=== PATIENT | male | born 1940 | race Caucasian/White ===

== ENCOUNTER 2017-04-08 11:18 | Outpatient (CLI) | payer OTHER | END 2017-04-08 17:44 | disposition home or self-care (01) | LOC: SRD 11:18 | PROVIDERS: ATTEND Internal Medicine | DX: M17.11 Unilateral primary osteoarthritis, right knee (principal); M85.88 Other specified disorders of bone density and structure, other site | CPT/HCPCS: 73564 ==

== ENCOUNTER 2017-07-18 09:13 | Emergency (ER) | payer OTHER ==
[~2017-07-18] VITALS: Ht 182.9 cm; Wt 110.7 kg
[2017-07-18 09:13] VITALS: BP_SYST 144
[2017-07-18 10:08] LABS: BASOPHILS % (AUTO) 0.4 % (0.0-2.0); EOSINOPHILS # (AUTO) 0.3 K/uL (0.0-0.4); EOSINOPHILS % (AUTO) 2.8 % (0.0-4.0); HEMATOCRIT 39.6 % (36-54); HEMOGLOBIN 12.8 g/dL (14.0-18.0); LYMPHOCYTES # (AUTO) 0.8 K/uL (1.0-5.5); LYMPHOCYTES % (AUTO) 6.9 % (20.5-51.5); MEAN CORPUSCULAR HEMOGLOBIN 30 pg (27-31); MEAN CORPUSCULAR HGB CONC 32 % (32-36); MEAN CORPUSCULAR VOLUME 92 fL (79.0-98.0); MONOCYTES # (AUTO) 0.9 K/uL (0.0-1.0); MONOCYTES % (AUTO) 8.1 % (1.7-9.3); NEUTROPHILS # (AUTO) 9.2 K/uL (1.8-7.7); NEUTROPHILS % (AUTO) 81.8 % (40.0-70.0); PLATELET COUNT (AUTO) 119 K/uL (130-430); RED BLOOD CELL COUNT(AUTO) 4.31 MIL/uL (4.2-6.2); RED CELL DISTRIBUTION WIDTH 13.6 % (9.0-15.0); WHITE BLOOD COUNT (AUTO) 11.2 K/uL (4.8-10.8)
[2017-07-18] MEDS ORDERED: KETOROLAC TROMETHAMINE 30 MG VIAL ONE ×2 (10:12→10:14)
[2017-07-18 10:18] LABS: ANION GAP 8 (5-15); CALCIUM 9.5 mg/dL (8.4-11.0); CHLORIDE 109 mmol/L (98-107); CREATININE 1.68 mg/dL (0.55-1.30); GLUCOSE 137 mg/dL (70-99); POTASSIUM 4.2 mmol/L (3.5-5.1); SODIUM SERUM 138 mmol/L (136-145); UREA NITROGEN, BLOOD 37 mg/dL (8-21)
[2017-07-18 10:22] LABS: INR 1.1 (0.80-1.20); PROTHROMBIN TIME 11.1 SECS (9.5-12.5)
[2017-07-18 10:24] LABS: ALANINE AMINOTRANSFERASE 19 U/L (12-78); ALBUMIN 3.7 g/dL (3.4-4.8); ASPARTATE AMINOTRANSFERASE 18 U/L (10-37)
[2017-07-18] MEDS: KETOROLAC TROMETHAMINE 30 MG VIAL IVP ONE (10:45)
[2017-07-18 13:00] VITALS: BP_SYST 125
== END 2017-07-18 13:00 | disposition home or self-care (01) ==
LOC: SED 09:13
DX: G89.29 Other chronic pain (principal); M54.5 Low back pain; Z87.81 Personal history of (healed) traumatic fracture
CPT/HCPCS: 36415; 72100; 80053; 83880; 84484; 85025; 85610; 85730; 93005; 96374; 99285; J1885; J7030

== ENCOUNTER 2017-07-23 11:44 | Inpatient (IN) | payer OTHER ==
[~2017-07-23] VITALS: Ht 182.9 cm; Wt 118.4 kg
[2017-07-23 11:49] VITALS: BP_SYST 135
[2017-07-23] MEDS ORDERED: ASPIRIN 81 MG TAB.CHEW PO ONE (12:15)
[2017-07-23] MEDS ORDERED: NITROGLYCERIN 1 INCH (GM) OINT. TP ONE (12:15)
[2017-07-23] MEDS ORDERED: LevALBUTEROL HCL 1.25 MG/0.5 ML *CONC.* VIAL.NEB (XOPENEX CONC.) INH ONE (12:30)
[2017-07-23 12:39] LABS: BASOPHILS % (AUTO) 0.5 % (0.0-2.0); EOSINOPHILS # (AUTO) 0.1 K/uL (0.0-0.4); EOSINOPHILS % (AUTO) 1.1 % (0.0-4.0); HEMATOCRIT 36.6 % (36-54); HEMOGLOBIN 12.1 g/dL (14.0-18.0); LYMPHOCYTES # (AUTO) 0.6 K/uL (1.0-5.5); LYMPHOCYTES % (AUTO) 6.1 % (20.5-51.5); MEAN CORPUSCULAR HEMOGLOBIN 30 pg (27-31); MEAN CORPUSCULAR HGB CONC 33 % (32-36); MEAN CORPUSCULAR VOLUME 92 fL (79.0-98.0); MONOCYTES # (AUTO) 0.9 K/uL (0.0-1.0); MONOCYTES % (AUTO) 9.5 % (1.7-9.3); NEUTROPHILS # (AUTO) 8.2 K/uL (1.8-7.7); NEUTROPHILS % (AUTO) 82.8 % (40.0-70.0); PLATELET COUNT (AUTO) 186 K/uL (130-430); RED BLOOD CELL COUNT(AUTO) 3.98 MIL/uL (4.2-6.2); RED CELL DISTRIBUTION WIDTH 13.4 % (9.0-15.0); WHITE BLOOD COUNT (AUTO) 9.8 K/uL (4.8-10.8)
[2017-07-23 13:07] LABS: ANION GAP 10 (5-15); CALCIUM 9.5 mg/dL (8.4-11.0); CHLORIDE 107 mmol/L (98-107); CREATININE 1.65 mg/dL (0.55-1.30); GLUCOSE 120 mg/dL (70-99); POTASSIUM 4.2 mmol/L (3.5-5.1); SODIUM SERUM 139 mmol/L (136-145); UREA NITROGEN, BLOOD 36 mg/dL (8-21)
[2017-07-23 13:10] LABS: PROTHROMBIN TIME 10.5 SECS (9.5-12.5)
[2017-07-23 13:13] LABS: ALANINE AMINOTRANSFERASE 30 U/L (12-78); ASPARTATE AMINOTRANSFERASE 21 U/L (10-37); TOTAL BILIRUBIN 1.5 mg/dL (0.0-1.0)
[2017-07-23] MEDS ORDERED: ENOXAPARIN SODIUM 100 MG/ML SYRINGE SUBCUT ONE (14:30)
[2017-07-23 16:29] VITALS: BP_SYST 123
[2017-07-23] MEDS ORDERED: ACETAMINOPHEN 325 MG TABLET PO PRN (16:30)
[2017-07-23] MEDS: FAMOTIDINE 20 MG TABLET PO SCH (16:30)
[2017-07-23] MEDS ORDERED: HYDROcodone/ACETAMIN 5-325 MG TAB (NORCO/ VICODIN) PO PRN (16:30)
[2017-07-23] MEDS ORDERED: HYDROcodone/ACETAMIN 7.5-325 MG TAB PO PRN (16:30)
[2017-07-23] MEDS ORDERED: ZOLPIDEM TARTRATE 5 MG TABLET PO PRN (17:00)
[2017-07-23] MEDS: NACL 0.9% 1,000 ML IV SCH (17:25)
[2017-07-23 20:00] VITALS: BP_SYST 147
[2017-07-24] VITALS (8 sets, daily range): BP systolic 127–158
[2017-07-24 00:40] LABS: BILIRUBIN,URINE NEGATIVE (NEGATIVE); BLOOD, URINE 1+ (NEGATIVE); CLARITY/URINE CLEAR (CLEAR); COLOR,URINE YELLOW (YELLOW); GLUCOSE,URINE NEGATIVE (NEGATIVE); KETONES,URINE NEGATIVE (NEGATIVE); LEUKOCYTE ESTERASE ,URINE NEGATIVE (NEGATIVE); NITRITE, URINE NEGATIVE (NEGATIVE); PH,URINE 5.5 (5.0-8.0); PROTEIN URINE 1+ (NEGATIVE)
[2017-07-24 00:47] LABS: BACTERIA,URINE MANY /HPF (None Seen); FINE GRANULAR CASTS,URINE 0-10 /LPF (None Seen); WBC,URINE 0-3 /HPF (0-3)
[2017-07-24] MEDS: NACL 0.9% 1,000 ML IV SCH ×2 (05:00→17:59)
[2017-07-24 06:58] LABS: BASOPHILS % (AUTO) 0.5 % (0.0-2.0); EOSINOPHILS # (AUTO) 0.3 K/uL (0.0-0.4); EOSINOPHILS % (AUTO) 3.6 % (0.0-4.0); HEMATOCRIT 33.1 % (36-54); LYMPHOCYTES # (AUTO) 1.1 K/uL (1.0-5.5); LYMPHOCYTES % (AUTO) 13.5 % (20.5-51.5); MEAN CORPUSCULAR HEMOGLOBIN 30 pg (27-31); MEAN CORPUSCULAR HGB CONC 33 % (32-36); MEAN CORPUSCULAR VOLUME 92 fL (79.0-98.0); MONOCYTES # (AUTO) 0.8 K/uL (0.0-1.0); MONOCYTES % (AUTO) 10.2 % (1.7-9.3); NEUTROPHILS # (AUTO) 5.9 K/uL (1.8-7.7); NEUTROPHILS % (AUTO) 72.2 % (40.0-70.0); PLATELET COUNT (AUTO) 184 K/uL (130-430); RED BLOOD CELL COUNT(AUTO) 3.62 MIL/uL (4.2-6.2); RED CELL DISTRIBUTION WIDTH 13.2 % (9.0-15.0); WHITE BLOOD COUNT (AUTO) 8.1 K/uL (4.8-10.8)
[2017-07-24] MEDS ORDERED: ENOXAPARIN SODIUM 120 MG/0.8 ML SYRINGE SUBCUT STA (07:44)
[2017-07-24 07:55] LABS: CALCIUM 8.8 mg/dL (8.4-11.0); CHLORIDE 110 mmol/L (98-107); CREATININE 1.62 mg/dL (0.55-1.30); GLUCOSE 101 mg/dL (70-99); POTASSIUM 4.1 mmol/L (3.5-5.1); SODIUM SERUM 143 mmol/L (136-145); UREA NITROGEN, BLOOD 35 mg/dL (8-21)
[2017-07-24 08:10] LABS: ALANINE AMINOTRANSFERASE 23 U/L (12-78); ALBUMIN 2.6 g/dL (3.4-4.8); ASPARTATE AMINOTRANSFERASE 20 U/L (10-37); THYROID STIMULATING HORMONE 3.52 uIu/mL (0.36-3.74)
[2017-07-24] MEDS: ENOXAPARIN SODIUM 120 MG/0.8 ML SYRINGE SUBCUT SCH (08:20)
[2017-07-24] MEDS: ENOXAPARIN SODIUM 30 MG/0.3 ML SYRINGE SUBCUT SCH (08:20)
[2017-07-24] MEDS: FAMOTIDINE 20 MG TABLET PO SCH (08:21)
[2017-07-24 08:30] LABS: ANION GAP 10 (5-15)
[2017-07-24 08:31] LABS: TOTAL BILIRUBIN 0.9 mg/dL (0.0-1.0)
[2017-07-25 03:58] VITALS: BP_SYST 149
[2017-07-25] MEDS: NACL 0.9% 1,000 ML IV SCH ×2 (06:20→18:40)
[2017-07-25 08:00] VITALS: BP_SYST 151
[2017-07-25] MEDS: APIXABAN 2.5 MG TABLET PO SCH ×3 (08:30→20:02)
[2017-07-25] MEDS: FAMOTIDINE 20 MG TABLET PO SCH (08:36)
[2017-07-25] MEDS: ENOXAPARIN SODIUM 120 MG/0.8 ML SYRINGE SUBCUT SCH (08:36)
[2017-07-25] MEDS: ENOXAPARIN SODIUM 30 MG/0.3 ML SYRINGE SUBCUT SCH (08:37)
[2017-07-25 11:43] VITALS: BP_SYST 138
[2017-07-25 16:07] VITALS: BP_SYST 144
[2017-07-25] MEDS ORDERED: APIX5TAB PO (18:47)
[2017-07-25 19:29] VITALS: BP_SYST 154
== END 2017-07-25 20:13 | disposition home or self-care (01) | DRG 300 ==
LOC: SED 11:44 → STU 15:59 → SMU 07-25 16:59
PROVIDERS: ADMIT Internal Medicine; ATTEND Internal Medicine
DX: I82.402 Acute embolism and thrombosis of unspecified deep veins of left lower extremity (principal); J44.1 Chronic obstructive pulmonary disease with (acute) exacerbation; J44.0 Chronic obstructive pulmonary disease with (acute) lower respiratory infection; J20.9 Acute bronchitis, unspecified; M47.9 Spondylosis, unspecified; M17.11 Unilateral primary osteoarthritis, right knee; I12.9 Hypertensive chronic kidney disease with stage 1 through stage 4 chronic kidney disease, or unspecified chronic kidney disease; N18.9 Chronic kidney disease, unspecified; Z80.6 Family history of leukemia; Z85.528 Personal history of other malignant neoplasm of kidney; Z90.5 Acquired absence of kidney; Z85.820 Personal history of malignant melanoma of skin
CPT/HCPCS: 36415; 36600; 71010; 72131; 80053; 81000-TC; 82803-TC; 83880; 84443-TC; 84484; 85025; 85379; 85610-TC; 87040-TC; 93005; 93971; 94640; 96372; 99285; J1650; J7030

== ENCOUNTER 2019-04-26 10:50 | Emergency (ER) | payer OTHER ==
[~2019-04-26] VITALS: Ht 182.9 cm; Wt 104.3 kg
[~2019-04-26 10:50] MED LIST: APIX5TAB PO
[2019-04-26 10:56] VITALS: BP_SYST 123
--- NOTE | 2019-04-26 10:59 | NUR ---
Placed in room 2. Placed on health policy manager, blood pressure machine and pulse oximeter. To gown for exam. Side rails up. Report given to Fallon PRICE.
--- NOTE | 2019-04-26 11:00 | NUR ---
Patient presented to ER with near syncope episode. Patient A&Ox4, arrived ALS, skin pink, respirations equal bilat, cap refill brisk. Patient states he was at a car show, walking in heat pt reports feeling as though he would pass out, diaphoretic, denies pain, denies N/V/D. Patient report feeling better now.
[2019-04-26 11:43] LABS: BASOPHILS % (AUTO) 0.7 % (0.0-2.0); EOSINOPHILS % (AUTO) 0.8 % (0.0-4.0); HEMATOCRIT 39.6 % (36-54); HEMOGLOBIN 13.2 g/dL (14.0-18.0); LYMPHOCYTES # (AUTO) 0.5 K/uL (1.0-5.5); LYMPHOCYTES % (AUTO) 10.2 % (20.5-51.5); MEAN CORPUSCULAR HEMOGLOBIN 32 pg (27-31); MEAN CORPUSCULAR HGB CONC 33 % (32-36); MEAN CORPUSCULAR VOLUME 95 fL (79.0-98.0); MONOCYTES # (AUTO) 0.4 K/uL (0.0-1.0); MONOCYTES % (AUTO) 7.9 % (1.7-9.3); NEUTROPHILS # (AUTO) 4.3 K/uL (1.8-7.7); NEUTROPHILS % (AUTO) 80.4 % (40.0-70.0); PLATELET COUNT (AUTO) 161 K/uL (130-430); RED BLOOD CELL COUNT(AUTO) 4.19 MIL/uL (4.2-6.2); RED CELL DISTRIBUTION WIDTH 14.3 % (9.0-15.0); WHITE BLOOD COUNT (AUTO) 5.3 K/uL (4.8-10.8)
--- NOTE | 2019-04-26 11:50 | NUR ---
Patient to Radiology via gurney.
[2019-04-26 11:56] LABS: ANION GAP 13 (5-15); CALCIUM 9.2 mg/dL (8.4-11.0); CHLORIDE 108 mmol/L (98-107); CREATININE 1.96 mg/dL (0.55-1.30); GLUCOSE 164 mg/dL (70-99); POTASSIUM 3.8 mmol/L (3.5-5.1); SODIUM SERUM 140 mmol/L (136-145); UREA NITROGEN, BLOOD 23 mg/dL (8-21)
[2019-04-26 12:01] LABS: ALANINE AMINOTRANSFERASE 19 U/L (12-78); ALBUMIN 3.3 g/dL (3.4-4.8); ASPARTATE AMINOTRANSFERASE 18 U/L (10-37); TOTAL BILIRUBIN 0.4 mg/dL (0.0-1.0)
--- NOTE | 2019-04-26 12:02 | NUR ---
Patient to ER bed 2 from Radiology via [facility].
[2019-04-26 13:00] VITALS: BP_SYST 122
== END 2019-04-26 13:00 | disposition home or self-care (01) ==
LOC: SED 10:50
DX: T67.5XXA Heat exhaustion, unspecified, initial encounter (principal); R55 Syncope and collapse; M19.90 Unspecified osteoarthritis, unspecified site; Z79.899 Other long term (current) drug therapy; X58.XXXA Exposure to other specified factors, initial encounter; Y93.89 Activity, other specified; Y92.89 Other specified places as the place of occurrence of the external cause; Y99.8 Other external cause status
CPT/HCPCS: 36415; 70450-TC; 71045; 80053; 82550-TC; 83880; 84484; 85025; 93005; 99284

== ENCOUNTER 2019-10-05 12:52 | Inpatient (IN) | payer OTHER ==
[~2019-10-05] VITALS: Ht 182.9 cm; Wt 109.8 kg
[2019-10-05 13:01] VITALS: BP_SYST 206
[2019-10-05] MEDS ORDERED: IPRATROPIUM BROM 0.5 MG/2.5 ML VIAL.NEB (ATROVENT) INH ONE (13:45)
[2019-10-05] MEDS ORDERED: ALBUTEROL SULFATE 0.083% 2.5 MG/3 ML VIAL.NEB INH ONE (13:45)
--- NOTE | 2019-10-05 14:03 | NUR ---
ER at bedside examining patient.
[2019-10-05 14:22] LABS: BASOPHILS % (AUTO) 0.3 % (0.0-2.0); EOSINOPHILS % (AUTO) 0.2 % (0.0-4.0); HEMATOCRIT 42.6 % (36-54); HEMOGLOBIN 14.3 g/dL (14.0-18.0); LYMPHOCYTES # (AUTO) 0.3 K/uL (1.0-5.5); MEAN CORPUSCULAR HEMOGLOBIN 32 pg (27-31); MEAN CORPUSCULAR HGB CONC 34 % (32-36); MEAN CORPUSCULAR VOLUME 94 fL (79.0-98.0); MONOCYTES # (AUTO) 0.4 K/uL (0.0-1.0); MONOCYTES % (AUTO) 5.3 % (1.7-9.3); NEUTROPHILS # (AUTO) 7.4 K/uL (1.8-7.7); NEUTROPHILS % (AUTO) 90.2 % (40.0-70.0); PLATELET COUNT (AUTO) 168 K/uL (130-430); RED BLOOD CELL COUNT(AUTO) 4.51 MIL/uL (4.2-6.2); WHITE BLOOD COUNT (AUTO) 8.2 K/uL (4.8-10.8)
[2019-10-05] MEDS ORDERED: APIX5TAB4 PO (14:26)
[2019-10-05] MEDS ORDERED: HYDR-4037 PO (14:26)
--- NOTE | 2019-10-05 14:30 | NUR ---
patient bib [facility] ambulance crew with cc of congestion , cough and dizziness, lung sound wheezing, bp 206/82, pulse 125.afebrile. spouse at bedside, giving history. MD toney seen patient earlier. nurse assessment done.will monitor.
[2019-10-05 14:33] LABS: ANION GAP 9 (5-15); CALCIUM 8.8 mg/dL (8.4-11.0); CHLORIDE 103 mmol/L (98-107); CREATININE 1.68 mg/dL (0.55-1.30); GLUCOSE 110 mg/dL (70-99); POTASSIUM 4.4 mmol/L (3.5-5.1); SODIUM SERUM 136 mmol/L (136-145); UREA NITROGEN, BLOOD 26 mg/dL (8-21)
[2019-10-05 14:34] LABS: PROTHROMBIN TIME 10.2 SECS (9.5-12.5)
[2019-10-05 14:39] LABS: ALANINE AMINOTRANSFERASE 35 U/L (12-78); ALBUMIN 3.8 g/dL (3.4-4.8); AMYLASE 58 U/L (0-100); ASPARTATE AMINOTRANSFERASE 23 U/L (10-37); LIPASE 128 U/L (73-393); TOTAL BILIRUBIN 0.7 mg/dL (0.0-1.0)
[2019-10-05] MEDS ORDERED: cefTRIAXone 1 GM VIAL IM ONE (15:30)
[2019-10-05] MEDS ORDERED: AZITHROMYCIN 500 MG in NS 250 ML IV ONE (15:30)
--- NOTE | 2019-10-05 15:30 | NUR ---
MEDICATION CORRECTION: ROCEPHIN 1 GM ENTERED AT EMAR INCORRECTLY. CLARIFIED VIA TELEPHONE WITH RAVINDRA NIEVES CORRECT ORDERED: ROCEPHIN 1 GM IVPB X1. ADMINISTERED VIA IVPB.
[2019-10-05] MEDS ORDERED: AZITHROMYCIN 500 MG/VIAL (ZITHROMAX) IV ONE (16:00)
--- NOTE | 2019-10-05 16:00 | NUR ---
admit ordered received from Dr. Ortega.
--- NOTE | 2019-10-05 16:17 | NUR ---
Admission: Received from ER on a gurney with the diagnosis of possible Pneumonia accompanied by . Patient vomited moderate amount of light yellow emesis upon arrival to the room. Denies congestion. Oriented to room, call light within reach.
--- NOTE | 2019-10-05 16:28 | NUR ---
Patient will be admitted to care of DR. ALAMO. Admitted to TELEMETRY unit. Will go to room 107A. Belongings list completed. Complete and up to date summary report printed. SBAR report to be given to Clarita PRICE at bedside with opportunity for questions.
[2019-10-05 16:30] VITALS: BP_SYST 131
--- NOTE | 2019-10-05 17:00 | NUR ---
admitting notes rec patient from er with a dx pof possible pnumonia. awake alert with ivl in the l wrist intact. zithromax infusing at thisitme. no infiltration oted. seen by dr ramirez at bedside and gave orders,. at bedside . denies pain at thisitme, no nause vomiting noted at this time. call light within reached and knows when to call for assistance.
--- NOTE | 2019-10-05 17:53 | NUR ---
CONSULT PULMONOLOGY HYPOXIA,RESP INSUFF,PNA DR FORTUNE [phone] DR PEÑA DRY BOX TENDER S/W REI EXCHANGE
[2019-10-05] MEDS ORDERED: ONDANSETRON HCL 4 MG/2 ML VIAL IVP PRN (18:15)
[2019-10-05] MEDS ORDERED: HYDROcodone/ACETAMIN 5-325 MG TAB (NORCO/ VICODIN) PO PRN (18:15)
[2019-10-05] MEDS: cefTRIAXone 1 GM in D5W 50 ML IV SCH (18:15)
[2019-10-05] MEDS ORDERED: ACETAMINOPHEN 325 MG TABLET PO PRN (18:15)
[2019-10-05] MEDS ORDERED: BUDESONIDE 0.5 MG/2 ML AMPUL.NEB INH ONE (18:30)
[2019-10-05 19:15] VITALS: BP_SYST 137
[2019-10-05] MEDS: IPRATROPIUM/ALBUTEROL SULFATE 3 ML AMPUL.NEB (DUONEB) INH SCH (19:37)
[2019-10-05 20:00] VITALS: BP_SYST 126
--- NOTE | 2019-10-05 20:00 | NUR ---
RECIEVED REPORT @ START OF SHIFT, A/O/X/4, RESPIRATIONS EVEN AND UNLABORED ,O2 @ 2L/M VIA NC. CVOUGHING PRODUCTIVELY GRAYISH THICK SECRETIONS NOTED SMALL AMOUNT.NS INFUSING @ 100ML/HR IN LEFT INNER WRIST #24G, SKIN INTACT VOIDING CLKEAR YELLOW URINE PER URINAL, TOLERATES PO FLUIDS IN SMALL FREQUENT SIPS, DENIES PAIN, SR'S UP X'S 3, CALL LIGHT WITHIN REACH AND BED IN LOW POSITION, WILL CONTINUE TO MONITOR.
[2019-10-05] MEDS: APIXABAN 2.5 MG TABLET PO SCH (21:18)
[2019-10-05] MEDS: guaiFENesin ER 600 MG TAB PO SCH (21:19)
[2019-10-05] MEDS: NACL 0.9% 1,000 ML IV SCH (21:25)
--- NOTE | 2019-10-06 | NUR ---
RESTING QUIETLY IN BED WITH EYES CLOSED, EASILY AROUSED, TOLERATED HHN TX FROM RESPIRATORY WITHOUT DIFFICULITY. DENIES PAIN, WILL CONTINUE TO MONITOR.
[2019-10-06] MEDS: methylPREDNISolone SOD SUCC 40 MG/ML VIAL IVP SCH ×3 (00:04→22:05)
[2019-10-06] MEDS: IPRATROPIUM/ALBUTEROL SULFATE 3 ML AMPUL.NEB (DUONEB) INH SCH ×4 (01:55→20:20)
[2019-10-06] MEDS: NACL 0.9% 1,000 ML IV SCH ×2 (03:40→08:43)
--- NOTE | 2019-10-06 04:00 | NUR ---
CONTINUES TO REST QUIETLY IN BED WITH EYES CLOSED, EASILY AROUSED, NO C/O PAIN,TOLERATING PO FLUIDS, WILL VONTINUE TO MONITOR, NSR ON TELE MONITOR.
[2019-10-06 04:16] VITALS: BP_SYST 129
[2019-10-06 06:35] LABS: BASOPHILS % (AUTO) 0.1 % (0.0-2.0); HEMATOCRIT 36.8 % (36-54); HEMOGLOBIN 12.3 g/dL (14.0-18.0); LYMPHOCYTES # (AUTO) 0.3 K/uL (1.0-5.5); LYMPHOCYTES % (AUTO) 2.6 % (20.5-51.5); MEAN CORPUSCULAR HEMOGLOBIN 32 pg (27-31); MEAN CORPUSCULAR HGB CONC 34 % (32-36); MEAN CORPUSCULAR VOLUME 95 fL (79.0-98.0); MONOCYTES # (AUTO) 0.2 K/uL (0.0-1.0); MONOCYTES % (AUTO) 2.1 % (1.7-9.3); NEUTROPHILS # (AUTO) 9.6 K/uL (1.8-7.7); NEUTROPHILS % (AUTO) 95.2 % (40.0-70.0); PLATELET COUNT (AUTO) 152 K/uL (130-430); RED BLOOD CELL COUNT(AUTO) 3.89 MIL/uL (4.2-6.2); RED CELL DISTRIBUTION WIDTH 14.1 % (9.0-15.0); WHITE BLOOD COUNT (AUTO) 10.1 K/uL (4.8-10.8)
[2019-10-06 07:15] LABS: ALANINE AMINOTRANSFERASE 24 U/L (12-78); ANION GAP 11 (5-15); ASPARTATE AMINOTRANSFERASE 23 U/L (10-37); CALCIUM 8.2 mg/dL (8.4-11.0); CHLORIDE 106 mmol/L (98-107); CREATININE 1.76 mg/dL (0.55-1.30); GLUCOSE 150 mg/dL (70-99); SODIUM SERUM 138 mmol/L (136-145); THYROID STIMULATING HORMONE 1.15 uIu/mL (0.36-3.74); TOTAL BILIRUBIN 0.4 mg/dL (0.0-1.0); UREA NITROGEN, BLOOD 31 mg/dL (8-21)
[2019-10-06 07:50] VITALS: BP_SYST 139
--- NOTE | 2019-10-06 07:50 | NUR ---
OPENING NOTES, RECEIVED PT IN BED, PT IS AAOX4, DNEIS PAIN, NO SOB, NO RESP DISTRESS. VITALS WNL. PT SOUNDS GURGLY ON ALL LOBES NO FEVER. NOTED THICK AND MAYORGA TO GREENISH SPUTUM ON THE WASH BASIN. IV FLUIDS INFUSING WELL. NO LEAK. NO S/S OF INFILTRATION. SAFETY PRECAUTION IN PLACE. CALL LIGHT IN REACH. BED IN LOW POSITION. ENCOURAGED TO CALL FOR ASSIST, PAIN MEDS AND ANY CONCERNS. WILL CONT TO MONITOR.
--- NOTE | 2019-10-06 08:31 | NUR ---
PT CAME BACK FROM CT OF CHEST. BED CHUCKS CHANGED AND PT SAT UP FOR BREAKFAST.
--- NOTE | 2019-10-06 08:32 | NUR ---
Nutrition Update Ramón Scale 14 noted. Pt admitted for possible pneumonia. Diet: full liquid BMI: 32.8 kg/m2 RD to follow per nutrition care standards.
[2019-10-06] MEDS: AZITHROMYCIN 500 MG in NS 250 ML IV SCH (08:44)
[2019-10-06] MEDS: FAMOTIDINE 20 MG TABLET PO SCH (08:45)
[2019-10-06] MEDS: guaiFENesin ER 600 MG TAB PO SCH ×2 (08:45→22:05)
[2019-10-06] MEDS: APIXABAN 2.5 MG TABLET PO SCH ×2 (08:48→22:07)
--- NOTE | 2019-10-06 10:18 | NUR ---
pt sitting on chair. resting, no c/o pain. no sob. all am meds given.
[2019-10-06 12:00] VITALS: BP_SYST 140
--- NOTE | 2019-10-06 12:00 | NUR ---
pt sitting on the chair. given sample cups for sputum and urine samples.
--- NOTE | 2019-10-06 12:27 | NUR ---
SS NOTE: BENCH INSPECTOR was referred by CM to see patient for DCP. Demographic information confirmed. BENCH INSPECTOR met pt while sitting on chair. Pt was alert and oriented x4. During the encounter, pt appeared to be well groomed with normal mood. Pt's speech was normal and affect was appropriate with average eye contact. Pt is a 78 y/o male who came in via ED after called 911. Pt states prior to coming in, he has been coughing for "a couple of days" and yesterday morning while he got up to go to the bathroom, pt lost his balance and leaned on the wall. Pt had weakness prompting to call 911. Pt lives with his and son in a one-jeff home with 2 steps to get to the front door. Pt is independent with ADL's and uses a cane to ambulate when out in the community. Pt states his only DME is his cane. Pt denies any history of mental health and substance use/abuse. Pt does not have any advanced directive/POLST and refuses to receive any. BENCH INSPECTOR re-educated pt on the importance of obtaining one and to contact SS if he changes his mind. Pt states if discharge to SNF, he prefers to be discharged to [facility] and no preference on [facility]HS. No further SS needs identified at this time, but will remain available if needed.
--- NOTE | 2019-10-06 14:11 | NUR ---
pt sitting on chair. offered assist to get back to bed, pt refused. sputum sample collected.
[2019-10-06 14:29] LABS: BILIRUBIN,URINE NEGATIVE (NEGATIVE); GLUCOSE,URINE NEGATIVE (NEGATIVE); KETONES,URINE NEGATIVE (NEGATIVE); LEUKOCYTE ESTERASE ,URINE NEGATIVE (NEGATIVE); NITRITE, URINE NEGATIVE (NEGATIVE); PH,URINE 5.5 (5.0-8.0); PROTEIN URINE TRACE (NEGATIVE); UROBILINOGEN,URINE 0.2 (0.2-1.0)
[2019-10-06 14:30] LABS: BLOOD, URINE TRACE (NEGATIVE); CLARITY/URINE HAZY (CLEAR); COLOR,URINE AMBER (YELLOW)
[2019-10-06 14:53] LABS: BACTERIA,URINE MODERATE /HPF (None Seen); RBC,URINE 0-3 /HPF (0-3); WBC,URINE 0-3 /HPF (0-3)
[2019-10-06 14:54] LABS: HYALINE CASTS, URINE 0-10 /LPF (None Seen); MUCUS,URINE 1+ /LPF (None Seen); URINE AMORPHOUS URATE 2+ /HPF (None Seen)
[2019-10-06] MEDS: cefTRIAXone 1 GM in D5W 50 ML IV SCH (17:49)
[2019-10-06 19:00] VITALS: BP_SYST 125
[2019-10-06 20:00] VITALS: BP_SYST 120; BP_SYST 138
--- NOTE | 2019-10-06 20:00 | NUR ---
ASSUMED CARE.RECEIVED ALERT,ORIENTED, SITTING ON A CHAIR AT BEDSIDE. AFEBRILE, NOT IN ACUTE DISTRESS. DENIES ANY PAIN OR DISCOMFORT. SINUS TACH/UNCONTROLLED AFIB AT 150-160'S AFTER GETTING BREATHING TREATMENT. OTHER VS ARE WITHIN NORMAL LIMITS. SAO2=98% ON 2 LPM O2 VIA NC. WILL NOTIFY ATTENDING MD. WILL CLOSELY MONITOR.
--- NOTE | 2019-10-06 20:11 | NUR ---
closing note,s pt has been stable, all iv abx and meds given. urine and sputum sample sent. per pt said he may be discharge in am. endorsed pt to nurse dumont.
--- NOTE | 2019-10-06 21:01 | NUR ---
PAGED PAGED RAVINDRA SUNG AT [phone] SPOKE WITH JANAE.
--- NOTE | 2019-10-06 21:14 | NUR ---
RETURNED CALL AND MADE AWARE OF PT'S [phone]. NEW ORDER GIVEN.
[2019-10-06] MEDS ORDERED: METOPROLOL TARTRATE 25 MG TABLET PO ONE (21:45)
--- NOTE | 2019-10-06 22:06 | NUR ---
METOPROLOL TARTRATE 12.5 PO X 1 AND DUE MEDICATIONS GIVEN.
[2019-10-06] MEDS ORDERED: METOPROLOL TARTRATE 25 MG TABLET ONE (22:26)
[2019-10-07] VITALS: BP_SYST 138
--- NOTE | 2019-10-07 | NUR ---
AWAKE, NOT IN ACUTE DISTRESS. NO PAIN OR DISCOMFORT NOTED. PT. BACK TO SINUS RHYTHM @ 90'S/MINUTE ON THE MONITOR. SIDE RAILS UP, CALL LIGHT WITHIN REACH. KEPT WARM AND COMFORTABLE. VS REMAIN STABLE. WILL CONTINUE TO MONITOR. NEEDS ATTENDED.
[2019-10-07] MEDS: IPRATROPIUM/ALBUTEROL SULFATE 3 ML AMPUL.NEB (DUONEB) INH SCH ×4 (00:51→20:29)
--- NOTE | 2019-10-07 04:00 | NUR ---
ASLEEP, NOT IN ANY KIND OF DISTRESS. NO PAIN OR DISCOMFORT AT THIS TIME. WILL CONTINUE TO MONITOR.
--- NOTE | 2019-10-07 06:00 | NUR ---
AWAKE, WATCHING TV. NO SIGNIFICANT CHANGE. PT.REMAINS STABLE AND PAIN FREE.
--- NOTE | 2019-10-07 07:20 | NUR ---
ENDORSED CARE TO CELY PRICE STABLE.
[2019-10-07 07:39] VITALS: BP_SYST 131
[2019-10-07 07:53] LABS: HEMOGLOBIN 12.7 g/dL (14.0-18.0); LYMPHOCYTES # (AUTO) 0.4 K/uL (1.0-5.5); LYMPHOCYTES % (AUTO) 1.9 % (20.5-51.5); MEAN CORPUSCULAR HEMOGLOBIN 32 pg (27-31); MEAN CORPUSCULAR HGB CONC 34 % (32-36); MEAN CORPUSCULAR VOLUME 94 fL (79.0-98.0); MONOCYTES # (AUTO) 0.7 K/uL (0.0-1.0); MONOCYTES % (AUTO) 3.6 % (1.7-9.3); NEUTROPHILS # (AUTO) 17.3 K/uL (1.8-7.7); NEUTROPHILS % (AUTO) 94.5 % (40.0-70.0); PLATELET COUNT (AUTO) 176 K/uL (130-430); RED BLOOD CELL COUNT(AUTO) 4.03 MIL/uL (4.2-6.2); RED CELL DISTRIBUTION WIDTH 14.2 % (9.0-15.0)
[2019-10-07 08:09] LABS: WHITE BLOOD COUNT (AUTO) 18.3 K/uL (4.8-10.8)
[2019-10-07] MEDS: AZITHROMYCIN 500 MG in NS 250 ML IV SCH (08:30)
[2019-10-07] MEDS: guaiFENesin ER 600 MG TAB PO SCH ×2 (08:30→21:32)
[2019-10-07] MEDS: FAMOTIDINE 20 MG TABLET PO SCH (08:30)
[2019-10-07] MEDS: methylPREDNISolone SOD SUCC 40 MG/ML VIAL IVP SCH ×2 (08:31→21:32)
[2019-10-07] MEDS: APIXABAN 2.5 MG TABLET PO SCH ×2 (08:40→21:37)
[2019-10-07 09:01] LABS: CALCIUM 8.9 mg/dL (8.4-11.0); CREATININE 1.62 mg/dL (0.55-1.30); GLUCOSE 152 mg/dL (70-99); UREA NITROGEN, BLOOD 50 mg/dL (8-21)
[2019-10-07 09:31] LABS: ANION GAP 6 (5-15); CHLORIDE 106 mmol/L (98-107); SODIUM SERUM 134 mmol/L (136-145)
[2019-10-07 12:00] VITALS: BP_SYST 124
[2019-10-07] MEDS: cefTRIAXone 1 GM in D5W 50 ML IV SCH (17:18)
--- NOTE | 2019-10-07 19:15 | NUR ---
PM SHIFT ASSESSMENT Pt is alert and oriented, sitting in chair at bedside. O2 via NC @ 2L, RR even and unlabored. Skin warm and dry. IV/SL noted to LFA. Safety precautions in place, call light within reach. Will continue to monitor.
[2019-10-07 20:00] VITALS: BP_SYST 125
--- NOTE | 2019-10-07 20:02 | NUR ---
closing notes pt endorsed to night manasa steward. pt on stable condition. pt has been stable the whole shift, no sob, no resp distress, all meds offered and taken.
[2019-10-08] VITALS: BP_SYST 130
[2019-10-08] MEDS: IPRATROPIUM/ALBUTEROL SULFATE 3 ML AMPUL.NEB (DUONEB) INH SCH ×3 (01:00→13:43)
--- NOTE | 2019-10-08 01:55 | NUR ---
Pt resting in bed. VSS. No signs of SOB or acute distress noted. Safety precautions in place, call light within reach. Will continue to monitor.
--- NOTE | 2019-10-08 07:25 | NUR ---
ENDORSEMENT Pt care endorsed to dayshift RN using nursing SBAR.
[2019-10-08 07:29] LABS: HEMATOCRIT 36.9 % (36-54); HEMOGLOBIN 12.1 g/dL (14.0-18.0); LYMPHOCYTES # (AUTO) 0.5 K/uL (1.0-5.5); LYMPHOCYTES % (AUTO) 3.2 % (20.5-51.5); MEAN CORPUSCULAR HEMOGLOBIN 31 pg (27-31); MEAN CORPUSCULAR HGB CONC 33 % (32-36); MEAN CORPUSCULAR VOLUME 94 fL (79.0-98.0); MONOCYTES # (AUTO) 0.5 K/uL (0.0-1.0); MONOCYTES % (AUTO) 2.9 % (1.7-9.3); NEUTROPHILS # (AUTO) 15.4 K/uL (1.8-7.7); NEUTROPHILS % (AUTO) 93.9 % (40.0-70.0); PLATELET COUNT (AUTO) 175 K/uL (130-430); RED BLOOD CELL COUNT(AUTO) 3.92 MIL/uL (4.2-6.2); RED CELL DISTRIBUTION WIDTH 14.5 % (9.0-15.0); WHITE BLOOD COUNT (AUTO) 16.4 K/uL (4.8-10.8)
[2019-10-08 07:45] LABS: ANION GAP 7 (5-15); CALCIUM 8.3 mg/dL (8.4-11.0); CHLORIDE 106 mmol/L (98-107); CREATININE 1.52 mg/dL (0.55-1.30); GLUCOSE 150 mg/dL (70-99); POTASSIUM 5.4 mmol/L (3.5-5.1); SODIUM SERUM 136 mmol/L (136-145); UREA NITROGEN, BLOOD 53 mg/dL (8-21)
[2019-10-08 08:00] VITALS: BP_SYST 138
[2019-10-08] MEDS: FAMOTIDINE 20 MG TABLET PO SCH (10:30)
[2019-10-08] MEDS: APIXABAN 2.5 MG TABLET PO SCH (10:32)
[2019-10-08] MEDS: methylPREDNISolone SOD SUCC 40 MG/ML VIAL IVP SCH (10:33)
[2019-10-08] MEDS: guaiFENesin ER 600 MG TAB PO SCH (10:33)
[2019-10-08] MEDS: AZITHROMYCIN 500 MG in NS 250 ML IV SCH (12:58)
[2019-10-08 18:05] VITALS: BP_SYST 130
== END 2019-10-08 18:50 | disposition home or self-care (01) | DRG 682 ==
LOC: SED 12:52 → STU 15:39
PROVIDERS: ADMIT Internal Medicine; ATTEND Internal Medicine
DX: N17.0 Acute kidney failure with tubular necrosis (principal); J18.9 Pneumonia, unspecified organism; J44.0 Chronic obstructive pulmonary disease with (acute) lower respiratory infection; R65.10 Systemic inflammatory response syndrome (SIRS) of non-infectious origin without acute organ dysfunction; J20.9 Acute bronchitis, unspecified; I12.9 Hypertensive chronic kidney disease with stage 1 through stage 4 chronic kidney disease, or unspecified chronic kidney disease; N18.9 Chronic kidney disease, unspecified; M19.90 Unspecified osteoarthritis, unspecified site; E86.0 Dehydration; Z79.01 Long term (current) use of anticoagulants; Z80.6 Family history of leukemia; Z85.528 Personal history of other malignant neoplasm of kidney; Z85.820 Personal history of malignant melanoma of skin; Z86.718 Personal history of other venous thrombosis and embolism; Z90.5 Acquired absence of kidney; Z95.828 Presence of other vascular implants and grafts; Z79.899 Other long term (current) drug therapy
CPT/HCPCS: 36415; 36600; 71045; 71250-TC; 80048; 80053; 81000-TC; 82150-TC; 82803-TC; 83605; 83690-TC; 83880; 84443-TC; 84484; 85025; 85379; 85610-TC; 85730-TC; 86710; 87040-TC; 87070-TC; 87186-TC; 87205-TC; 93005; 93970; 94640; 94760; 99285; G0378; J0456; J0696; J1030; J7030; J7050; J7060; J7613; J7620; J7626

== ENCOUNTER 2020-10-13 11:43 | Inpatient (IN) | payer OTHER, SELFPAY ==
[~2020-10-13] VITALS: Ht 193 cm; Wt 103.0 kg
[~2020-10-13 11:43] MED LIST changes: -APIX5TAB PO; +APIX5TAB4 PO; +HYDR-4037 PO
[2020-10-13 11:44] VITALS: BP_SYST 120
[2020-10-13] MEDS ORDERED: cefTRIAXone 1 GM IVPB PREMIX 50 ML IV ONE (14:00)
[2020-10-13] MEDS ORDERED: NACL 0.9% 1,000 ML IV ONE (14:00)
[2020-10-13 14:28] LABS: BASOPHILS % (AUTO) 0.1 % (0.0-2.0); EOSINOPHILS # (AUTO) 0.1 K/uL (0.0-0.4); EOSINOPHILS % (AUTO) 0.7 % (0.0-4.0); HEMOGLOBIN 16.5 g/dL (14.0-18.0); LYMPHOCYTES # (AUTO) 0.5 K/uL (1.0-5.5); LYMPHOCYTES % (AUTO) 4.1 % (20.5-51.5); MEAN CORPUSCULAR HEMOGLOBIN 31 pg (27-31); MEAN CORPUSCULAR HGB CONC 34 % (32-36); MEAN CORPUSCULAR VOLUME 92 fL (79.0-98.0); NEUTROPHILS % (AUTO) 86.1 % (40.0-70.0); PLATELET COUNT (AUTO) 252 K/uL (130-430); RED BLOOD CELL COUNT(AUTO) 5.36 MIL/uL (4.2-6.2); RED CELL DISTRIBUTION WIDTH 14.4 % (9.0-15.0); WHITE BLOOD COUNT (AUTO) 11.6 K/uL (4.8-10.8)
[2020-10-13 15:02] LABS: INR 1.4 (0.80-1.20)
[2020-10-13 15:03] LABS: ANION GAP 10 (5-15); CALCIUM 8.7 mg/dL (8.4-11.0); CHLORIDE 110 mmol/L (98-107); CREATININE 1.72 mg/dL (0.55-1.30); GLUCOSE 105 mg/dL (70-99); POTASSIUM 4.9 mmol/L (3.5-5.1); SODIUM SERUM 142 mmol/L (136-145); UREA NITROGEN, BLOOD 43 mg/dL (8-21)
[2020-10-13 15:15] LABS: ALANINE AMINOTRANSFERASE 16 U/L (12-78); ALBUMIN 2.7 g/dL (3.4-4.8); ASPARTATE AMINOTRANSFERASE 20 U/L (10-37); TOTAL BILIRUBIN 1.1 mg/dL (0.0-1.0)
[2020-10-13 16:33] VITALS: BP_SYST 120
[2020-10-13] MEDS ORDERED: CEFAZOLIN 1 GM IVPB PREMIX 0 ML IV ONE (16:39)
[2020-10-13] MEDS ORDERED: cefTRIAXone 1 GM VIAL ONE (16:41)
[2020-10-13 18:09] VITALS: BP_SYST 106
[2020-10-13] MEDS ORDERED: MELATONIN 3 MG TABLET PO PRN (19:00)
[2020-10-13] MEDS ORDERED: ACETAMINOPHEN 325 MG TABLET PO PRN (19:00)
[2020-10-13] MEDS: AZITHROMYCIN 500 MG in NS 250 ML IV SCH (19:00)
[2020-10-13] MEDS: DEXAMETHASONE SOD PHOSPHATE 10 MG/ML VIAL IVP SCH (20:00)
[2020-10-13 20:35] VITALS: BP_SYST 140
[2020-10-13] MEDS: APIXABAN 2.5 MG TABLET PO SCH (21:00)
[2020-10-13] MEDS: ASCORBIC ACID 500 MG TABLET PO SCH (21:00)
[2020-10-13] MEDS: METOPROLOL TARTRATE 25 MG TABLET PO SCH (22:00)
[2020-10-13] MEDS: NACL 0.9% 1,000 ML IV SCH (22:00)
[2020-10-13 22:22] LABS: C-REACTIVE PROTEIN QUANT 1.8 mg/dL (0-0.5)
[2020-10-14 00:29] VITALS: BP_SYST 108
[2020-10-14 07:53] LABS: BASOPHILS % (AUTO) 0.2 % (0.0-2.0); EOSINOPHILS # (AUTO) 0.1 K/uL (0.0-0.4); EOSINOPHILS % (AUTO) 1.3 % (0.0-4.0); HEMATOCRIT 44.6 % (36-54); HEMOGLOBIN 14.8 g/dL (14.0-18.0); LYMPHOCYTES # (AUTO) 0.7 K/uL (1.0-5.5); LYMPHOCYTES % (AUTO) 7.6 % (20.5-51.5); MEAN CORPUSCULAR HEMOGLOBIN 30 pg (27-31); MEAN CORPUSCULAR HGB CONC 33 % (32-36); MEAN CORPUSCULAR VOLUME 91 fL (79.0-98.0); MONOCYTES # (AUTO) 1.1 K/uL (0.0-1.0); MONOCYTES % (AUTO) 12.4 % (1.7-9.3); NEUTROPHILS # (AUTO) 6.8 K/uL (1.8-7.7); NEUTROPHILS % (AUTO) 78.5 % (40.0-70.0); PLATELET COUNT (AUTO) 201 K/uL (130-430); RED BLOOD CELL COUNT(AUTO) 4.89 MIL/uL (4.2-6.2)
[2020-10-14 08:31] LABS: WHITE BLOOD COUNT (AUTO) 8.6 K/uL (4.8-10.8)
[2020-10-14 08:32] LABS: ALANINE AMINOTRANSFERASE 15 U/L (12-78); ALBUMIN 2.4 g/dL (3.4-4.8); ANION GAP 10 (5-15); ASPARTATE AMINOTRANSFERASE 20 U/L (10-37); C-REACTIVE PROTEIN QUANT 2.7 mg/dL (0-0.5); CALCIUM 7.7 mg/dL (8.4-11.0); CHLORIDE 108 mmol/L (98-107); CREATININE 1.68 mg/dL (0.55-1.30); GLUCOSE 83 mg/dL (70-99); POTASSIUM 4.3 mmol/L (3.5-5.1); SODIUM SERUM 136 mmol/L (136-145); THYROID STIMULATING HORMONE 3.35 uIu/mL (0.34-4.82); TOTAL BILIRUBIN 0.9 mg/dL (0.0-1.0); UREA NITROGEN, BLOOD 42 mg/dL (8-21)
[2020-10-14 09:00] VITALS: BP_SYST 101
[2020-10-14] MEDS: CHOLECALCIFEROL (VITAMIN D3) 5,000 UNIT TABLET PO SCH (09:00)
[2020-10-14] MEDS: ASCORBIC ACID 500 MG TABLET PO SCH ×2 (09:00→21:00)
[2020-10-14] MEDS: METOPROLOL TARTRATE 25 MG TABLET PO SCH ×2 (09:00→21:00)
[2020-10-14] MEDS: FAMOTIDINE 20 MG TABLET PO SCH (09:00)
[2020-10-14] MEDS: APIXABAN 2.5 MG TABLET PO SCH ×2 (09:00→21:00)
[2020-10-14] MEDS: NACL 0.9% 1,000 ML IV SCH (10:30)
[2020-10-14 12:20] VITALS: BP_SYST 119
[2020-10-14] MEDS: DEXAMETHASONE SOD PHOSPHATE 10 MG/ML VIAL IVP SCH (12:40)
[2020-10-14] MEDS: cefTRIAXone 1 GM in D5W 50 ML IV SCH (12:40)
[2020-10-14 16:00] VITALS: BP_SYST 119
[2020-10-14] MEDS: AZITHROMYCIN 500 MG in NS 250 ML IV SCH (17:00)
[2020-10-14 19:30] LABS: BILIRUBIN,URINE NEGATIVE (NEGATIVE); CLARITY/URINE CLEAR (CLEAR); COLOR,URINE YELLOW (YELLOW); GLUCOSE,URINE NEGATIVE (NEGATIVE); KETONES,URINE NEGATIVE (NEGATIVE); LEUKOCYTE ESTERASE ,URINE NEGATIVE (NEGATIVE); NITRITE, URINE NEGATIVE (NEGATIVE); PROTEIN URINE NEGATIVE (NEGATIVE); UROBILINOGEN,URINE 0.2 (0.2-1.0)
[2020-10-14 19:40] LABS: BLOOD, URINE TRACE (NEGATIVE)
[2020-10-14 19:41] LABS: BACTERIA,URINE FEW /HPF (None Seen)
[2020-10-14 19:42] LABS: MUCUS,URINE 1+ /LPF (None Seen)
[2020-10-15 00:17] VITALS: BP_SYST 128
[2020-10-15] MEDS: NACL 0.9% 1,000 ML IV SCH ×2 (00:21→11:38)
[2020-10-15] MEDS ORDERED: METOPROLOL SUCCINATE 25 MG TAB.SR.24H (TOPROL XL) PO ONE (05:45)
[2020-10-15] MEDS ORDERED: METOPROLOL TARTRATE 25 MG TABLET PO ONE (06:00)
[2020-10-15 07:58] LABS: ANION GAP 8 (5-15); CALCIUM 8.4 mg/dL (8.4-11.0); CHLORIDE 109 mmol/L (98-107); CREATININE 1.62 mg/dL (0.55-1.30); GLUCOSE 140 mg/dL (70-99); POTASSIUM 4.6 mmol/L (3.5-5.1); SODIUM SERUM 139 mmol/L (136-145); UREA NITROGEN, BLOOD 38 mg/dL (8-21)
[2020-10-15 08:00] VITALS: BP_SYST 126
[2020-10-15] MEDS: DEXAMETHASONE SOD PHOSPHATE 10 MG/ML VIAL IVP SCH (09:00)
[2020-10-15] MEDS: ASCORBIC ACID 500 MG TABLET PO SCH ×2 (09:19→20:45)
[2020-10-15] MEDS: APIXABAN 2.5 MG TABLET PO SCH ×2 (09:21→20:45)
[2020-10-15] MEDS: FAMOTIDINE 20 MG TABLET PO SCH (09:21)
[2020-10-15] MEDS: CHOLECALCIFEROL (VITAMIN D3) 5,000 UNIT TABLET PO SCH (09:21)
[2020-10-15] MEDS: METOPROLOL TARTRATE 25 MG TABLET PO SCH ×2 (09:23→18:20)
[2020-10-15] MEDS: cefTRIAXone 1 GM in D5W 50 ML IV SCH (10:00)
[2020-10-15] MEDS ORDERED: AMIODARONE HCL 200 MG TABLET PO ONE ×2 (11:30→13:00)
[2020-10-15] MEDS ORDERED: AMIODARONE HCL 200 MG TABLET ONE ×2 (12:19→12:34)
[2020-10-15 12:52] VITALS: BP_SYST 125
[2020-10-15 16:20] VITALS: BP_SYST 138
[2020-10-15] MEDS: AZITHROMYCIN 500 MG in NS 250 ML IV SCH (16:57)
[2020-10-15 20:00] VITALS: BP_SYST 122
[2020-10-15] MEDS: AMIODARONE HCL 200 MG TABLET PO SCH (20:45)
[2020-10-16] VITALS (8 sets, daily range): BP systolic 112–144
[2020-10-16] MEDS: NACL 0.9% 1,000 ML IV SCH ×2 (06:00→11:24)
[2020-10-16 08:10] LABS: BASOPHILS % (AUTO) 0.2 % (0.0-2.0); HEMATOCRIT 38.8 % (36-54); HEMOGLOBIN 12.7 g/dL (14.0-18.0); LYMPHOCYTES # (AUTO) 0.5 K/uL (1.0-5.5); LYMPHOCYTES % (AUTO) 4.6 % (20.5-51.5); MEAN CORPUSCULAR HEMOGLOBIN 30 pg (27-31); MEAN CORPUSCULAR HGB CONC 33 % (32-36); MEAN CORPUSCULAR VOLUME 92 fL (79.0-98.0); MONOCYTES # (AUTO) 0.5 K/uL (0.0-1.0); MONOCYTES % (AUTO) 4.2 % (1.7-9.3); NEUTROPHILS # (AUTO) 10.8 K/uL (1.8-7.7); PLATELET COUNT (AUTO) 154 K/uL (130-430); RED BLOOD CELL COUNT(AUTO) 4.23 MIL/uL (4.2-6.2); RED CELL DISTRIBUTION WIDTH 14.3 % (9.0-15.0); WHITE BLOOD COUNT (AUTO) 11.9 K/uL (4.8-10.8)
[2020-10-16 08:32] LABS: ALANINE AMINOTRANSFERASE 21 U/L (12-78); ALBUMIN 2.4 g/dL (3.4-4.8); ANION GAP 9 (5-15); ASPARTATE AMINOTRANSFERASE 14 U/L (10-37); CALCIUM 8.1 mg/dL (8.4-11.0); CHLORIDE 110 mmol/L (98-107); CREATININE 1.52 mg/dL (0.55-1.30); GLUCOSE 114 mg/dL (70-99); POTASSIUM 4.7 mmol/L (3.5-5.1); SODIUM SERUM 138 mmol/L (136-145); TOTAL BILIRUBIN 0.4 mg/dL (0.0-1.0); UREA NITROGEN, BLOOD 40 mg/dL (8-21)
[2020-10-16 09:25] LABS: CHOLESTEROL 135 mg/dL (<200); HDL CHOLESTEROL 30 mg/dL (>45); LDL CHOLESTEROL 97 mg/dL (<100); TRIGLYCERIDES 54 mg/dL (30-150)
[2020-10-16] MEDS: AMIODARONE HCL 200 MG TABLET PO SCH ×2 (10:14→21:00)
[2020-10-16] MEDS: FAMOTIDINE 20 MG TABLET PO SCH (10:14)
[2020-10-16] MEDS: ASCORBIC ACID 500 MG TABLET PO SCH ×2 (10:14→21:00)
[2020-10-16] MEDS: METOPROLOL TARTRATE 25 MG TABLET PO SCH ×2 (10:14→21:00)
[2020-10-16] MEDS: DEXAMETHASONE SOD PHOSPHATE 10 MG/ML VIAL IVP SCH (10:14)
[2020-10-16] MEDS: cefTRIAXone 1 GM in D5W 50 ML IV SCH (10:14)
[2020-10-16] MEDS: CHOLECALCIFEROL (VITAMIN D3) 5,000 UNIT TABLET PO SCH (10:14)
[2020-10-16] MEDS: APIXABAN 2.5 MG TABLET PO SCH ×2 (10:15→22:19)
[2020-10-16] MEDS: AZITHROMYCIN 500 MG in NS 250 ML IV SCH (17:40)
[2020-10-17] VITALS: BP_SYST 149
[2020-10-17] MEDS: NACL 0.9% 1,000 ML IV SCH ×2 (01:00→13:30)
[2020-10-17] MEDS ORDERED: LORazepam 2 MG/ML VIAL IVP ONE (06:20)
[2020-10-17 08:25] VITALS: BP_SYST 154
[2020-10-17 08:49] LABS: ANION GAP 9 (5-15); CALCIUM 8.7 mg/dL (8.4-11.0); CHLORIDE 108 mmol/L (98-107); CREATININE 1.65 mg/dL (0.55-1.30); GLUCOSE 108 mg/dL (70-99); POTASSIUM 5.2 mmol/L (3.5-5.1); SODIUM SERUM 140 mmol/L (136-145); UREA NITROGEN, BLOOD 42 mg/dL (8-21)
[2020-10-17] MEDS ORDERED: SODIUM POLYSTYRENE SULFONATE 15 GM/60 ML UDBTL PO ONE (09:15)
[2020-10-17] MEDS: DEXAMETHASONE SOD PHOSPHATE 10 MG/ML VIAL IVP SCH (09:36)
[2020-10-17] MEDS: AMIODARONE HCL 200 MG TABLET PO SCH ×2 (09:36→20:30)
[2020-10-17] MEDS: METOPROLOL TARTRATE 25 MG TABLET PO SCH ×2 (09:37→20:30)
[2020-10-17] MEDS: ASCORBIC ACID 500 MG TABLET PO SCH ×2 (09:37→20:30)
[2020-10-17] MEDS: APIXABAN 2.5 MG TABLET PO SCH ×2 (09:38→20:30)
[2020-10-17] MEDS: FAMOTIDINE 20 MG TABLET PO SCH (09:45)
[2020-10-17] MEDS: cefTRIAXone 1 GM in D5W 50 ML IV SCH (09:46)
[2020-10-17] MEDS: CHOLECALCIFEROL (VITAMIN D3) 5,000 UNIT TABLET PO SCH (09:46)
[2020-10-17 12:00] VITALS: BP_SYST 136
[2020-10-17 14:04] LABS: C-REACTIVE PROTEIN QUANT 0.5 mg/dL (0-0.5)
[2020-10-17 15:59] VITALS: BP_SYST 136
[2020-10-17] MEDS: AZITHROMYCIN 500 MG in NS 250 ML IV SCH (17:34)
[2020-10-17 20:29] VITALS: BP_SYST 146
[2020-10-18 00:40] VITALS: BP_SYST 144
[2020-10-18] MEDS: NACL 0.9% 1,000 ML IV SCH (03:02)
[2020-10-18] MEDS: DEXAMETHASONE SOD PHOSPHATE 10 MG/ML VIAL IVP SCH (08:21)
[2020-10-18] MEDS: AMIODARONE HCL 200 MG TABLET PO SCH ×2 (08:21→21:14)
[2020-10-18] MEDS: APIXABAN 2.5 MG TABLET PO SCH ×2 (08:22→21:15)
[2020-10-18] MEDS: ASCORBIC ACID 500 MG TABLET PO SCH ×2 (08:23→21:15)
[2020-10-18] MEDS: METOPROLOL TARTRATE 25 MG TABLET PO SCH ×2 (08:23→21:15)
[2020-10-18] MEDS: FAMOTIDINE 20 MG TABLET PO SCH (08:23)
[2020-10-18] MEDS: CHOLECALCIFEROL (VITAMIN D3) 5,000 UNIT TABLET PO SCH (08:24)
[2020-10-18 09:13] LABS: ANION GAP 9 (5-15); CHLORIDE 108 mmol/L (98-107); GLUCOSE 93 mg/dL (70-99); POTASSIUM 4.8 mmol/L (3.5-5.1); SODIUM SERUM 139 mmol/L (136-145); UREA NITROGEN, BLOOD 39 mg/dL (8-21)
[2020-10-18 09:38] VITALS: BP_SYST 159
[2020-10-18] MEDS: cefTRIAXone 1 GM in D5W 50 ML IV SCH (09:40)
[2020-10-18] MEDS ORDERED: DILTIAZEM HCL 120 MG CAP.SR.24H PO ONE ×2 (10:15→12:15)
[2020-10-18 12:00] VITALS: BP_SYST 136
[2020-10-18 15:21] VITALS: BP_SYST 125
[2020-10-18 16:00] VITALS: BP_SYST 138
[2020-10-18 19:45] VITALS: BP_SYST 139
[2020-10-19 06:41] LABS: BASOPHILS % (AUTO) 0.3 % (0.0-2.0); HEMATOCRIT 45.2 % (36-54); HEMOGLOBIN 15.1 g/dL (14.0-18.0); LYMPHOCYTES # (AUTO) 0.4 K/uL (1.0-5.5); LYMPHOCYTES % (AUTO) 3.2 % (20.5-51.5); MEAN CORPUSCULAR HEMOGLOBIN 30 pg (27-31); MEAN CORPUSCULAR HGB CONC 33 % (32-36); MEAN CORPUSCULAR VOLUME 91 fL (79.0-98.0); MONOCYTES # (AUTO) 0.6 K/uL (0.0-1.0); MONOCYTES % (AUTO) 5.3 % (1.7-9.3); NEUTROPHILS # (AUTO) 10.6 K/uL (1.8-7.7); NEUTROPHILS % (AUTO) 91.2 % (40.0-70.0); PLATELET COUNT (AUTO) 140 K/uL (130-430); RED BLOOD CELL COUNT(AUTO) 4.96 MIL/uL (4.2-6.2); RED CELL DISTRIBUTION WIDTH 14.5 % (9.0-15.0); WHITE BLOOD COUNT (AUTO) 11.6 K/uL (4.8-10.8)
[2020-10-19 07:14] LABS: ALANINE AMINOTRANSFERASE 31 U/L (12-78); ALBUMIN 2.5 g/dL (3.4-4.8); ANION GAP 11 (5-15); ASPARTATE AMINOTRANSFERASE 17 U/L (10-37); CALCIUM 8.2 mg/dL (8.4-11.0); CHLORIDE 108 mmol/L (98-107); CREATININE 1.34 mg/dL (0.55-1.30); GLUCOSE 116 mg/dL (70-99); POTASSIUM 4.8 mmol/L (3.5-5.1); SODIUM SERUM 139 mmol/L (136-145); TOTAL BILIRUBIN 0.4 mg/dL (0.0-1.0); UREA NITROGEN, BLOOD 40 mg/dL (8-21)
[2020-10-19 08:50] VITALS: BP_SYST 156
[2020-10-19] MEDS ORDERED: DILTIAZEM HCL 120 MG CAP.SR.24H PO SCH (09:00)
[2020-10-19] MEDS: cefTRIAXone 1 GM in D5W 50 ML IV SCH (09:57)
[2020-10-19] MEDS: METOPROLOL TARTRATE 25 MG TABLET PO SCH (09:58)
[2020-10-19] MEDS: CHOLECALCIFEROL (VITAMIN D3) 5,000 UNIT TABLET PO SCH (09:58)
[2020-10-19] MEDS: DEXAMETHASONE SOD PHOSPHATE 10 MG/ML VIAL IVP SCH (09:59)
[2020-10-19] MEDS: APIXABAN 2.5 MG TABLET PO SCH (10:00)
[2020-10-19] MEDS: ASCORBIC ACID 500 MG TABLET PO SCH (10:01)
[2020-10-19] MEDS: FAMOTIDINE 20 MG TABLET PO SCH (10:01)
[2020-10-19] MEDS: AMIODARONE HCL 200 MG TABLET PO SCH (10:02)
[2020-10-19] MEDS ORDERED: ROCPM1 IV (10:48)
[2020-10-19] MEDS ORDERED: DEXA4VIA18 IVP (10:50)
[2020-10-19 11:44] VITALS: BP_SYST 156
[2020-10-19 12:36] VITALS: BP_SYST 133
[2020-10-19 13:01] VITALS: BP_SYST 133
[2020-10-19] MEDS ORDERED: METOPROLOL TARTRATE 50 MG TABLET ONE (13:06)
[2020-10-19] MEDS ORDERED: METOPROLOL TARTRATE 50 MG TABLET PO ONE (13:15)
[2020-10-19 15:05] VITALS: BP_SYST 136
== END 2020-10-19 13:20 | DRG 871 ==
LOC: SED 11:43 → STU 16:27
PROVIDERS: ADMIT Internal Medicine; ATTEND Internal Medicine
PROC: XW13325 Transfusion of Convalescent Plasma (Nonautologous) into Peripheral Vein, Percutaneous Approach, New Technology Group 5 (ICD-10-PCS; principal; 2020-10-14)
DX: A41.9 Sepsis, unspecified organism (principal); U07.1 COVID-19; J12.82 Pneumonia due to coronavirus disease 2019; J96.91 Respiratory failure, unspecified with hypoxia; N17.0 Acute kidney failure with tubular necrosis; I47.1 Supraventricular tachycardia; I48.92 Unspecified atrial flutter; D72.810 Lymphocytopenia; Z96.649 Presence of unspecified artificial hip joint; M19.90 Unspecified osteoarthritis, unspecified site; I12.9 Hypertensive chronic kidney disease with stage 1 through stage 4 chronic kidney disease, or unspecified chronic kidney disease; I48.91 Unspecified atrial fibrillation; E86.0 Dehydration; E87.5 Hyperkalemia; N18.9 Chronic kidney disease, unspecified; Z79.01 Long term (current) use of anticoagulants; Z79.899 Other long term (current) drug therapy; Z85.528 Personal history of other malignant neoplasm of kidney; Z85.820 Personal history of malignant melanoma of skin; Z86.718 Personal history of other venous thrombosis and embolism; Z87.81 Personal history of (healed) traumatic fracture; Z90.49 Acquired absence of other specified parts of digestive tract; Z90.5 Acquired absence of kidney
CPT/HCPCS: 36415; 36430; 36600; 71045; 80048; 80053; 80061; 81000-TC; 82728; 82803-TC; 83605; 83615-TC; 83880; 84443-TC; 84484; 85025; 85379; 85610-TC; 85730-TC; 86140; 86900; 86901; 87040-TC; 87081; 87086; 93005; 94760; 96365; 96368; 97110-GP; 97116-GP; 97163; 97530-GP; 99285; G0378; J0456; J0690; J0696; J1100; J2060; J7030; J7050; J7060; P9017; U0003

== ENCOUNTER 2021-08-04 10:57 | Outpatient (CLI) | payer OTHER ==
[~2021-08-04 10:57] MED LIST changes: +DEXA4VIA18 IVP; -HYDR-4037 PO; +ROCPM1 IV
[2021-08-04 12:13] LABS: ALANINE AMINOTRANSFERASE 23 U/L (12-78); ALBUMIN 3.8 g/dL (3.4-4.8); ANION GAP 8 (5-15); ASPARTATE AMINOTRANSFERASE 17 U/L (10-37); CALCIUM 9.5 mg/dL (8.4-11.0); CHLORIDE 108 mmol/L (98-107); GLUCOSE 101 mg/dL (70-99); POTASSIUM 4.3 mmol/L (3.5-5.1); SODIUM SERUM 140 mmol/L (136-145); THYROID STIMULATING HORMONE 18.46 uIu/mL (0.36-3.74); TOTAL BILIRUBIN 0.4 mg/dL (0.0-1.0); UREA NITROGEN, BLOOD 23 mg/dL (8-21)
[2021-08-04 12:58] LABS: CHOLESTEROL 173 mg/dL (<200); HDL CHOLESTEROL 57 mg/dL (>45); LDL CHOLESTEROL 114 mg/dL (<100); TRIGLYCERIDES 52 mg/dL (30-150)
== END 2021-08-05 16:59 | disposition home or self-care (01) ==
LOC: SLB 10:57
PROVIDERS: ATTEND Internal Medicine Cardiovascular Disease
DX: I10 Essential (primary) hypertension (principal); E78.5 Hyperlipidemia, unspecified; J44.9 Chronic obstructive pulmonary disease, unspecified
CPT/HCPCS: 36415; 80053; 80061; 84443

== ENCOUNTER 2021-11-07 11:39 | Outpatient (CLI) | payer OTHER ==
[2021-11-07 12:37] LABS: ALANINE AMINOTRANSFERASE 21 U/L (12-78); ALBUMIN 3.7 g/dL (3.4-4.8); ANION GAP 9 (5-15); ASPARTATE AMINOTRANSFERASE 18 U/L (10-37); CALCIUM 8.7 mg/dL (8.4-11.0); CHLORIDE 109 mmol/L (98-107); CREATININE 1.55 mg/dL (0.55-1.30); FREE T4 (FREE THYROXINE) 1.2 ng/dl (0.8-1.5); GLUCOSE 95 mg/dL (70-99); POTASSIUM 4.4 mmol/L (3.5-5.1); SODIUM SERUM 142 mmol/L (136-145); THYROID STIMULATING HORMONE 4.31 uIu/mL (0.36-3.74); TOTAL BILIRUBIN 0.7 mg/dL (0.0-1.0); UREA NITROGEN, BLOOD 26 mg/dL (8-21)
== END 2021-11-07 20:17 | disposition home or self-care (01) ==
LOC: SLB 11:39
PROVIDERS: ATTEND Internal Medicine Cardiovascular Disease
DX: I10 Essential (primary) hypertension (principal); E78.5 Hyperlipidemia, unspecified; I48.0 Paroxysmal atrial fibrillation; J44.9 Chronic obstructive pulmonary disease, unspecified
CPT/HCPCS: 36415; 80053; 84439; 84443

== ENCOUNTER 2022-01-24 11:58 | Outpatient (CLI) | payer OTHER ==
[2022-01-24 13:09] LABS: ALANINE AMINOTRANSFERASE 17 U/L (12-78); ALBUMIN 3.7 g/dL (3.4-4.8); ANION GAP 7 (5-15); ASPARTATE AMINOTRANSFERASE 23 U/L (10-37); CALCIUM 9.5 mg/dL (8.4-11.0); CHLORIDE 108 mmol/L (98-107); CREATININE 1.82 mg/dL (0.55-1.30); FREE T4 (FREE THYROXINE) 1.2 ng/dl (0.8-1.5); GLUCOSE 93 mg/dL (70-99); POTASSIUM 4.7 mmol/L (3.5-5.1); SODIUM SERUM 142 mmol/L (136-145); THYROID STIMULATING HORMONE 3.91 uIu/mL (0.36-3.74); TOTAL BILIRUBIN 0.3 mg/dL (0.0-1.0); UREA NITROGEN, BLOOD 29 mg/dL (8-21)
== END 2022-01-24 19:56 | disposition home or self-care (01) ==
LOC: SLB 11:58
PROVIDERS: ATTEND Internal Medicine Cardiovascular Disease
DX: I10 Essential (primary) hypertension (principal); E78.5 Hyperlipidemia, unspecified; I48.0 Paroxysmal atrial fibrillation; J44.9 Chronic obstructive pulmonary disease, unspecified
CPT/HCPCS: 36415; 80053; 84439; 84443

== ENCOUNTER 2022-06-06 10:36 | Outpatient (CLI) | payer OTHER ==
[2022-06-06 12:01] LABS: ALANINE AMINOTRANSFERASE 14 U/L (12-78); ALBUMIN 3.4 g/dL (3.4-4.8); ANION GAP 8 (5-15); ASPARTATE AMINOTRANSFERASE 17 U/L (10-37); CALCIUM 9.1 mg/dL (8.4-11.0); CHLORIDE 109 mmol/L (98-107); CREATININE 1.81 mg/dL (0.55-1.30); GLUCOSE 95 mg/dL (70-99); POTASSIUM 4.5 mmol/L (3.5-5.1); SODIUM SERUM 142 mmol/L (136-145); THYROID STIMULATING HORMONE 4.46 uIu/mL (0.36-3.74); TOTAL BILIRUBIN 0.6 mg/dL (0.0-1.0); UREA NITROGEN, BLOOD 24 mg/dL (8-21)
== END 2022-06-06 19:04 | disposition home or self-care (01) ==
LOC: SLB 10:36
PROVIDERS: ATTEND Internal Medicine Cardiovascular Disease
DX: I10 Essential (primary) hypertension (principal); E03.9 Hypothyroidism, unspecified; E78.5 Hyperlipidemia, unspecified; I48.0 Paroxysmal atrial fibrillation
CPT/HCPCS: 36415; 80053; 84443

== ENCOUNTER 2022-07-03 10:49 | Outpatient (CLI) | payer OTHER | END 2022-07-03 19:22 | disposition home or self-care (01) | LOC: SLB 10:49 | PROVIDERS: ATTEND Internal Medicine | DX: E03.9 Hypothyroidism, unspecified (principal); I48.91 Unspecified atrial fibrillation; I48.92 Unspecified atrial flutter; R00.1 Bradycardia, unspecified | CPT/HCPCS: 36415; 84443 ==